=== PATIENT | male | born 1975 ===

== ENCOUNTER 2024-06-05 05:35 | Day surgery (SDC) | payer OTHER ==
[2024-06-01 13:30] VITALS: BMI 29.5
[2024-06-05] MEDS ORDERED: PROPOFOL 40 ML ONE (07:43)
[2024-06-05] MEDS ORDERED: SUCCINYLCHOLINE CHLORIDE 200 MG/10 ML SYRINGE ONE (07:44)
[2024-06-05] MEDS: GENTAMICIN 80MG PREMIX BAG IVPB ONE (08:00)
[2024-06-05] MEDS: ceFAZolin SODIUM 1 GM VIAL IVPB ONE (08:00)
[2024-06-05] MEDS ORDERED: LIDOCAINE HCL 2% JELLY 11 ML TP ONE (08:18)
[2024-06-05] MEDS ORDERED: PROPOFOL 20 ML ONE (08:55)
[2024-06-05] MEDS ORDERED: oxyCODONE HCL 5 MG TABLET PO PRN (09:14)
[2024-06-05 12:36] VITALS: BP 128/66; PULSE 78; RESP 18; TEMP 97.1
== END 2024-06-05 13:18 | disposition home or self-care (01) ==
LOC: JASU-SURG 05:35
PROVIDERS: ATTEND Urology
PROC: 0TND8ZZ Release Urethra, Via Natural or Artificial Opening Endoscopic (ICD-10-PCS; principal; 2024-06-05 08:00)
PROC: 0T7D8ZZ Dilation of Urethra, Via Natural or Artificial Opening Endoscopic (ICD-10-PCS; 2024-06-05 08:00)
DX: N35.919 Unspecified urethral stricture, male, unspecified site (principal); Q54.9 Hypospadias, unspecified
CPT/HCPCS: 76000-TC-FY; 94760; C1758